=== PATIENT | male | born 1955 | race Caucasian/White ===

== ENCOUNTER 2020-12-31 08:59 | Day surgery (SDC) | payer BC ==
--- NOTE | 2020-12-31 07:39 | PCM.PREANE ---
Preanesthetic Assessment - Procedure Proposed Procedure: Colonoscopy - Anesthesia/Transfusion/Family Hx Anesthesia History: Prior Anesthesia Without Reaction Family History of Anesthesia Reaction: No Transfusion History: Prior Transfusion Without Reaction Intubation History: Unknown - Review of Systems Pulmonary: No Symptoms (EDWIGE- CPAP/ cigar smoker: 5 daily, ETOH: rarely) Cardiovascular: No Symptoms (History of A-fib/ablation 2015, HTN, CAD-history of stents 2013, elevated cholesterol, History of thoracic aortic aneurysm 3.9cm, NSTEMI 2013) Gastrointestinal: No Symptoms (History of prostate cancer, history of C-diff, S/P: fecal transplant, GERD with smoking), Diarrhea (chronic intermittent) Neurological: No Symptoms (History of TIA-years ago, nothing currently) Other: Reports: None, Easy Bleeding, Diabetes (AM blood qitnw=[id number]@ [id number]), Depression - Physical Assessment NPO Status Date: 12/30/20 NPO Status Time: 21:00 Vital Signs: HR: 58 Sat: 96% Temp: 97.4 B/P: 159/87 Resp: 18 Height: 1.93 m Weight: 92 kg ASA Class: 3 Mental Status: Alert & Oriented x3 Airway Class: Mallampati = 2 Dentition: Reports: Normal Dentition, Caries Thyro-Mental Finger Breadths: 3 Mouth Opening Finger Breadths: 3 ROM/Head Extension: Full Lungs: Clear to Auscultation, Normal Respiratory Effort Cardiovascular: Regular Rate, Regular Rhythm, Murmurs - Imaging/EKG Impressions: Echocardiogram: Severe LVH, mild-moderate aortic stenosis, EF: 70% EKG: SR with RBBB rate=69 - Allergies Allergies/Adverse Reactions: Allergies Allergy/AdvReac Type Severity Reaction Status Date / Time No Known Allergies Allergy Verified 12/30/20 12:16 - Anesthesia Plan Pre-Op Medication Ordered: None - Acknowledgements Anesthesia Type Planned: MAC Pt an Appropriate Candidate for the Planned Anesthesia: Yes Alternatives and Risks of Anesthesia Discussed w Pt/Guardian: Yes Pt/Guardian Understands and Agrees with Anesthesia Plan: Yes PreAnesthesia Questionnaire HEENT History: Reports: Glaucoma, Impaired Vision Cardiovascular History: Reports: Afib, CAD, High Cholesterol, Hypertension, NC Respiratory History: Reports: None Gastrointestinal History: Reports: Helicobacter Pylori, Other (See Below) Other Gastrointestinal History: fecal transplant Genitourinary History: Reports: Other (See Below) Other Genitourinary History: elevated PSA 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 Musculoskeletal History: Reports: None Neurological History: Reports: TIA Psychiatric History: Reports: None Endocrine/Metabolic History: Reports: Diabetes, Type II Hematologic History: Reports: None Immunologic History: Reports: None Oncologic (Cancer) History: Reports: Prostate Dermatologic History: Reports: None - Infectious Disease History Infectious Disease History: Reports: None - Past Surgical History Head Surgeries/Procedures: Reports: None HEENT Surgical History: Reports: Tonsillectomy Cardiovascular Surgical History: Reports: Cardiac Ablation Respiratory Surgical History: Reports: None GI Surgical History: Reports: Colonoscopy, EGD, Hernia Repair/Other Female Surgical History: Reports: None Male Surgical History: Reports: None Endocrine Surgical History: Reports: None Neurological Surgical History: Reports: None Musculoskeletal Surgical History: Reports: Other (See Below) Other Musculoskeletal Surgeries/Procedures:: foot surgery Oncologic Surgical History: Reports: None - SUBSTANCE USE Tobacco Use Status *Q: Current Every Day Tobacco User Tobacco Use Within Last Twelve Months: Cigars Recreational Drug Use History: No - HOME MEDS Home Medications: Home Meds Brinzolamide/Brimonidine Tart [Simbrinza 1%-0.2% Eye Drops] 1 drop EYEBOTH DAILY 12/30/20 [History] Cholecalciferol (Vitamin D3) [Vitamin D3] 5,000 unit PO DAILY 12/30/20 [History] Chromium Picolinate 1 g PO DAILY 12/30/20 [History] Empagliflozin [Jardiance] 10 mg PO DAILY 12/30/20 [History] Fish Oil/Plano-3 Fatty Acids [Fish Oil 1,000 MG] 1 gm PO DAILY 12/30/20 [History] Glucosam/Chond/Collagen/Hyalur [Glucosamine Chondroitin] 2 cap PO DAILY 12/30/20 [History] Lactobacillus Acidophilus [Probiotic] 1 cap PO DAILY 12/30/20 [History] Latanoprost [Xalatan 0.005% Ophth Soln] 1 dose EYEBOTH BEDTIME 12/30/20 [History] Lutein/Minerals/Vit A,C & E [Ocuvite] 1 tab PO DAILY 12/30/20 [History] Melatonin 30 mg PO DAILY 12/30/20 [History] Nitroglycerin [Nitrostat] 0.4 mg PO DAILY 12/30/20 [History] Rosuvastatin [Crestor] 5 mg PO DAILY 12/30/20 [History] Saw [place] 160 mg PO DAILY 12/30/20 [History] Ubidecarenone [Coq-10] 100 mg PO DAILY 12/30/20 [History] Ultrainflamx 1 dose PO DAILY 12/30/20 [History] buPROPion HCL [Wellbutrin SR] 150 mg PO QAM 12/30/20 [History] dilTIAZem HCL [Cardizem] 120 mg PO DAILY 12/30/20 [History] hydroCHLOROthiazide [Hydrochlorothiazide] 25 mg PO DAILY 12/30/20 [History] metFORMIN [Glucophage] 500 mg PO BID 12/30/20 [History] ramipriL [Ramipril] 10 mg PO BID 12/30/20 [History] tadalafiL [Cialis] 5 mg PO DAILY 12/30/20 [History] - CURRENT (IN HOUSE) MEDS Current Meds: Current Medications Lactated Ringer's (Ringers, Lactated) 1,000 mls @ 125 mls/hr IV ASDIRECTED ALVARO Stop: 12/31/20 23:00 Lidocaine/Sodium Bicarbonate (Lidocaine 1%/Sod Bicarbonate In Ns 8.4% 1 Ml Syringe) 0.25 ml IDERM ONETIME PRN PRN Reason: Prior to IV Start Stop: 12/31/20 18:00 Sodium Chloride (Sodium Chloride 0.9% 10 Ml Syringe) 10 ml FLUSH ASDIRECTED PRN PRN Reason: Keep Vein Open Stop: 12/31/20 18:00
[~2020-12-31 08:59] MED LIST: Lactated Ringers 1,000 ML IV SCH; Lidocaine 1%/Sod Bicarbonate in NS 8.4% 1 ML Syringe IDERM PRN; Sodium Chloride 0.9% 10 ML Syringe FLUSH PRN
[2020-12-31] MEDS ORDERED: Lactated Ringers 1,000 ML ONE (09:03)
[2020-12-31] MEDS ORDERED: Propofol 200 MG/20 ML SDV ONE (09:04)
[2020-12-31] MEDS ORDERED: fentaNYL 100 MCG/2 ML SDV ONE (09:04)
--- NOTE | 2020-12-31 10:59 | PCM48HPAN ---
Post Anesthesia Note - EVALUATION WITHIN 48HRS OF ANESTHETIC Vital Signs in Normal Range: Yes Patient Participated in Evaluation: Yes Respiratory Function Stable: Yes Airway Patent: Yes Cardiovascular Function Stable: Yes Hydration Status Stable: Yes Pain Control Satisfactory: Yes Nausea and Vomiting Control Satisfactory: Yes Mental Status Recovered: Yes Vital Signs: Last Vital Signs Temp 36.3 C 12/31/20 09:05 Pulse 58 L 12/31/20 09:05 Resp 18 12/31/20 09:05 BP 159/87 H 12/31/20 09:05 Pulse Ox 96 12/31/20 09:05
--- NOTE | 2020-12-31 11:04 | PCM.OPNOTE ---
- General Post-Op/Procedure Note Date of Surgery/Procedure: 12/31/20 Operative Procedure(s): colonoscopy Findings: 1. diverticulosis 2. Colon polyp Pre Op Diagnosis: chronic intermittent diarrhea Post-Op Diagnosis: same Anesthesia Technique: MAC Primary Surgeon: Katherine Gomez Anesthesia Provider: Yu Fountain Pathology: 1. Ascending and transverse colon biopsies 2. Descending and sigmoid colon biopsies 3. Transverse colon polyp Fluid Replacement, Intraop: 1,100 Output, Urine Amount: 0 EBL in mLs: 0 Complications: none apparent Condition: Good
--- NOTE | 2020-12-31 11:06 | PCM.PRNOTE ---
- Free Text/Narrative Note: Operative Report Date of Surgery/Procedure: December 31, 2020 Operative Procedure: Colonoscopy to cecum Pre Op Diagnosis: chronic intermittent diarrhea Post-Op Diagnosis: same Surgeon: Katherine Gomez MD Anesthesia Technique: MAC Anesthesia Provider: Yu Fountain CRNA IV Fluid Replacement, Intraop: 1100cc Output, Urine Amount: 0cc EBL: 0cc Findings: 1. diverticulosis 2. Colon polyp Specimens: 1. Ascending and transverse colon biopsies 2. Descending and sigmoid colon biopsies 3. Transverse colon polyp Indication: The patient is a 65 year-old gentleman who presented to the outpatient clinic. The patient has a history of chronic intermittent diarrhea We discussed the procedure of a colonoscopy including the polypectomy and biopsy. Risks of bleeding and perforation were discussed, the patient understood and wished to proceed. Written and consent was obtained Description of the procedure: The patient was brought to the endoscopy suite and placed in the left lateral decubitus position. Appropriate monitors were applied. The patient was given MAC anesthesia. An anorectal examination was performed, revealing no external abnormality. The scope was placed into the rectum and advanced to cecum with minimal difficulty. The patients cecum was entered, and the ileocecal valve and appendiceal orifice were identified and normal. At this point, the scope was withdrawn, paying careful attention to the mucosa. The patient had good bowel prep. A 3mm flat polyp was noted in the transverse colon and removed with a cold biopsy forceps. Random colon biopsies were taken in the ascending, transverse, descending and sigmoid colon. The mucosa appeared normal. There were a few small diverticula noted in the descending and sigmoid colon. In the rectum, the scope was retroflexed and no abnormalities were noted, except for some hemorrhoidal tissue. The scope was placed back in the lumen and the excess air was aspirated. The patient tolerated the procedure well. Complications: none apparent Condition: Good, transported to PACU in stable condition Katherine Gomez MD General Surgery
[2020-12-31 12:25] VITALS: BP 162/84; PULSE 57
== END 2020-12-31 11:30 | disposition home or self-care (01) ==
LOC: JD.SDS 08:59
PROVIDERS: ATTEND Surgery
DX: K52.9 Noninfective gastroenteritis and colitis, unspecified (principal); K57.30 Diverticulosis of large intestine without perforation or abscess without bleeding; I25.10 Atherosclerotic heart disease of native coronary artery without angina pectoris; I48.91 Unspecified atrial fibrillation; E11.9 Type 2 diabetes mellitus without complications; I10 Essential (primary) hypertension; I25.2 Old myocardial infarction; Z86.73 Personal history of transient ischemic attack (TIA), and cerebral infarction without residual deficits; Z98.890 Other specified postprocedural states; G47.30 Sleep apnea, unspecified; Z79.899 Other long term (current) drug therapy; Z79.84 Long term (current) use of oral hypoglycemic drugs
CPT/HCPCS: 45380; 82947; J2704; J3010; J7120; 00812